=== PATIENT | female | born 1940 | race Caucasian/White ===

== ENCOUNTER 2025-06-25 20:30 | Outpatient (REF) | payer MEDICARE, OTHER, SELFPAY | END 2025-06-25 20:31 | disposition home or self-care (01) | LOC: LBN 20:30 | PROVIDERS: Visit Provider Family Medicine | DX: M70.62 Trochanteric bursitis, left hip (principal) | CPT/HCPCS: 87070; 87205 ==

== ENCOUNTER 2025-06-26 10:35 | Inpatient (IN) | payer MEDICARE, OTHER, SELFPAY ==
[2025-06-26] VITALS (90 sets, daily range): BP systolic 65–107; BP diastolic 27–56; PULSE 67–133; RESP 13–27; TEMP 36.3–37.5; O2SAT 86–97
--- NOTE | 2025-06-26 10:45 | RT.EKG_ITS ---
APPROVED REPORT Exam: Resting ECG Reason for Exam: shortness of breath Patient Location: E HR:103 bpm ECG Measurements Heart Rate 103 AXIS OK 135 P 42 QRSd 69 QRS -2 QT 328 T 20 QTc 429 Conclusion Sinus tachycardia...rate> 99 Probable left atrial enlargement...P >50mS, <-0.10mV V1 Low voltage, extremity and precordial leads...extremity<0.5mV, precordial<1.0mV Anteroseptal infarct, age indeterminate...Q >35mS, T neg, V1-V2
[2025-06-26 11:11] LABS: Abs Immature Grans 0.58 10^3/uL (0.0-0.06); HCT 29.6 % (36.0-46.0); HGB 9.9 g/dL (11.2-15.7); Immature Grans % 1.6 %; MCH 32.8 pg (27.0-33.0); MCHC 33.4 % (32.0-36.0); MCV 98 fL (80-95); MPV 10.5 fL (8.0-11.0); Platelet Count 192 10^3/uL (130-400); RBC 3.02 10^6/uL (3.93-5.22); RDW 16.9 % (11.7-14.6); RDW-SD 60.7 fL
[2025-06-26 11:13] LABS: ESR 12 mm/hr (0-30)
[2025-06-26] MEDS: Lactated Ringers 500 ML 1000 ML IV (11:20)
[2025-06-26 11:25] LABS: ALT 52 U/L (14-59); AST 52 U/L (15-37); Albumin 1.6 g/dL (3.4-5.0); Alkaline Phosphatase 292 U/L (46-116); Anion Gap 4.6 mmol/L (3-11); BUN 33 mg/dL (7-18); Bilirubin, Total 0.8 mg/dL (0.2-1.0); C-Reactive Protein 18.47 mg/dL (<or=0.5); CO2 28.4 mmol/L (21.0-32.0); Calcium 7.8 mg/dL (8.5-10.1); Chloride 101 mmol/L (98-107); Estimated GFR 88.45 (mL/min/1.73m2); Glucose 88 mg/dL (74-106); Potassium 4.7 mmol/L (3.5-5.1); Sodium 134 mmol/L (136-145); Total Protein 4.2 g/dL (6.4-8.2)
[2025-06-26 11:30] LABS: RBC Morphology Normal; WBC 36.59 10^3/uL (4.4-10.8)
--- NOTE | 2025-06-26 11:30 | DI.CT_ITS ---
Exam(s) CT CHEST PE ABD PELVIS W EXAM: CT CHEST PE ABD PELVIS W CLINICAL HISTORY: shortness of breath, tachy, hypotensive. TECHNIQUE: Imaging Protocol: Axial CT angiography was performed with multi- slice acquisition and multi-planar and/or 3D reconstructions. Computer aided detection (CAD) was utilized. CONTRAST MATERIAL: Intravenous: Omnipaque 350contrast volume:80 mL COMPARISON: No exams were available for comparison FINDINGS: CHEST: Tracheobronchial tree: Patent where visualized. No evidence of bronchiectasis. Pulmonary parenchyma: Moderate centrilobular emphysema. There is a calcified granuloma in the right upper lobe. There is scarring in the lung apices. There are moderate bilateral pleural effusions and subjacent atelectasis. Pulmonary Arteries: No evidence of filling defect to suggest pulmonary emboli. Mediastinum and Velma: No dominant adenopathy or fluid collection. The esophagus is unremarkable. There is a large hiatal hernia. Visualized thyroid gland: Unremarkable. Pleura: There is no evidence of a pneumothorax. Heart: There is cardiomegaly. Three vessel coronary artery calcification is present. No pericardial effusion. Aorta: Thoracic aorta non-dilated. No evidence of dissection. Atherosclerotic calcification is present. Bones: Within normal limits for the patient's age. Soft tissues: There is diffuse edema in the abdominal wall consistent with anasarca. ABDOMEN: Liver: Normal density. There is a tiny hypodensity in the dome of the liver which is too small for further characterization but likely early reflects a small cyst. No suspicious hepatic lesions are seen. Portal, Superior Mesenteric, and Splenic Veins: Unremarkable. Gallbladder and Biliary Tract: There are gallstones present. There is no biliary ductal dilatation. Pancreas: Normal density, no abnormal calcifications or inflammatory process. Spleen: There are several hypodensity seen in the spleen. The largest measures 3.0 cm. Adrenals: No masses seen. Kidneys: Normal size, contour and axis. No radiodense stones or obstructive uropathy. No masses seen. Abdominal Aorta: Abdominal portion non-dilated. Atherosclerotic calcification of the abdominal aorta is noted. There is tortuosity of the abdominal aorta. 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 Bowel: There is a large hiatal hernia with a significant portion of the stomach above the hemidiaphragm. There is diverticulosis of the colon without evidence of acute diverticulitis. There is thickening of the bowel involving the ascending and proximal transverse colon. There is a normal appendix present. Peritoneal Cavity: There is a large amount of abdominal and pelvic ascites. No free air. Lymph Nodes: Within normal limits. Bones: Within normal limits for the patient's age. There is a left convex thoracolumbar scoliosis. There are L3 through L5 laminectomy defects. Soft Tissues: There is edema seen in the subcutaneous tissues in the abdomen suspicious for anasarca. PELVIS: Bladder: There is a Arshad catheter in the urinary bladder. The urinary bladder is incompletely distended. There is air seen within the urinary bladder likely reflecting the recent catheterization. Reproductive Organs: There is a large area of decreased attenuation seen within the uterus centrally. This may be a markedly thickened endometrial stripe measuring up to 2.3 cm versus fluid within the endometrial canal. Lymph Nodes: Within normal limits. Bones: Within normal limits. IMPRESSION: 1. Extensive abdominal pelvic ascites and anasarca. 2. Thickening of the wall of the ascending and transverse colon. Differential considerations include infectious or inflammatory colitis, portal hypertension colopathy or neoplasm. 3. Diverticulosis seen in the distal colon without evidence of acute diverticulitis. 4. Large area of decreased attenuation seen within the uterus. This may represent a thickened endometrial stripe measuring up to 2.3 cm. Neoplasm should be considered. Fluid within the endometrial canal should also be considered. Hematometra should be considered. Gynecologic consult is recommended. 5. Hypodensity seen within the spleen. These are nonspecific. These may represent cysts, hemangiomas or metastases. 6. Cholelithiasis. There is no biliary ductal dilatation. 7. Air seen within the urinary bladder likely reflecting recent catheterization. 8. There is no evidence of a pulmonary embolism, thoracic aortic dissection or aneurysm. 9. Moderate size bilateral pleural effusions and subjacent atelectasis. 10. Moderate centrilobular emphysema. 11. Findings were discussed with Dr. Crowley at 2:23 p.m. on 06/26/2025. RADIATION DOSE DELIVERED: 631.37mGy.cm Total DLP DATA REPOSITORY: All CT scans at this facility are submitted to the National Radiology Data Registry (NRDR) Dose Index Registry (DIR) with the [employer] ([employer]). RADIATION OPTIMIZATION: All CT scans at this facility use at least one of these dose optimization techniques: automated exposure control; mA and/or kV adjustment per patient size (includes targeted exams where dose is matched to clinical indication); or iterative reconstruction.
[2025-06-26 11:31] LABS: NT-proBNP 1003 pg/mL (<300); Troponin I 8 ng/L (<or=51)
[2025-06-26 11:47] LABS: D-Dimer 1370 ng/mlFEU (<500)
--- NOTE | 2025-06-26 11:54 | W.ED.GENAD ---
Discharge Plan Disposition Patient Disposition: Home Condition: Serious Discharge Details Clinical Impression: Acute UTI, Ascites, Anasarca, Bilateral pleural effusion, Anemia, Sepsis Primary Care Provider: Maycol Liang ED Provider: Torsten Crowley Home Meds and New Rx's Prescriptions: No Action doxycycline hyclate 100 mg capsule 100 mg PO BID gabapentin 300 mg capsule 600 mg PO TID cephalexin 500 mg capsule 500 mg PO QID calcium carbonate [Calcium 500] 500 mg calcium (1,250 mg) tablet,chewable 500 mg PO BID vitamin E 268 mg (400 unit) capsule 268 mg PO DAILY prednisone 1 mg tablet,delayed release (DR/EC) 1 mg PO BID sertraline 25 mg tablet 25 mg PO DAILY omeprazole 20 mg capsule,delayed release(DR/EC) 20 mg PO DAILY atorvastatin [Lipitor] 10 mg tablet 10 mg PO DAILY losartan [Cozaar] 25 mg tablet 25 mg PO DAILY methotrexate sodium 2.5 mg tablet 18 mg PO QWEEK aspirin 81 mg tablet 81 mg PO BID cholecalciferol (vitamin D3) 25 mcg (1,000 unit) capsule 2,000 unit PO DAILY folic acid 1 mg tablet 1,000 mcg PO DAILY acetaminophen [Athenol] 325 mg tablet 650 mg PO TID PRN diphenhydramine HCl [Unisom SleepGels] 1 cap PO QHS PRN melatonin 3 mg capsule 3 mg PO HS PRN ibuprofen [Advil] 200 mg tablet 400 mg PO Q4H PRN bisacodyl [Dulcolax (bisacodyl)] 10 mg suppository 10 mg CA DAILY PRN sennosides [Linda-jessica] 8.6 mg tablet 25.8 mg PO DAILY PRN sorbitol 70 % solution 15 ml PO DAILY PRN HPI General Mode of arrival: ambulatory. Date/Time Provider Initiated Documentation: 06/26/25 10:50. Limitations to Documentation: no limitations. Information obtained by: patient. HPI Narrative: 84-year-old female with history of recent left hip ORIF at [facility] on 06/20/2025, sent from nursing rehab facility with concern for increased drainage from left hip wound this morning and elevated WBC on outpatient labs. Patient notes some shortness of breath that is new. No chest pain. Patient denies other complaints. Denies fever. Related Data Home Medications ?Medication ?Instructions ?Recorded ?Confirmed acetaminophen 325 mg tablet 650 mg PO TID PRN 06/26/25 06/26/25 (Athenol) aspirin 81 mg tablet 81 mg PO BID 06/26/25 06/26/25 atorvastatin 10 mg tablet (Lipitor) 10 mg PO DAILY 06/26/25 06/26/25 bisacodyl 10 mg rectal suppository 10 mg CA DAILY PRN 06/26/25 06/26/25 (Dulcolax (bisacodyl)) calcium carbonate (Calcium 500) 500 mg PO BID 06/26/25 06/26/25 cephalexin 500 mg capsule 500 mg PO QID 06/26/25 06/26/25 cholecalciferol (vitamin D3) 25 2,000 unit PO DAILY 06/26/25 06/26/25 mcg (1,000 unit) capsule diphenhydramine HCl 1 cap PO QHS PRN 06/26/25 06/26/25 doxycycline hyclate 100 mg capsule 100 mg PO BID 06/26/25 06/26/25 folic acid 1 mg tablet 1,000 mcg PO DAILY 06/26/25 06/26/25 gabapentin 300 mg capsule 600 mg PO TID 06/26/25 06/26/25 ibuprofen 200 mg tablet (Advil) 400 mg PO Q4H PRN 06/26/25 06/26/25 losartan 25 mg tablet (Cozaar) 25 mg PO DAILY 06/26/25 06/26/25 melatonin 3 mg capsule 3 mg PO HS PRN 06/26/25 06/26/25 methotrexate sodium 2.5 mg tablet 18 mg PO QWEEK 06/26/25 06/26/25 omeprazole 20 mg capsule,delayed 20 mg PO DAILY 06/26/25 06/26/25 release prednisone 1 mg tablet,delayed 1 mg PO BID 06/26/25 06/26/25 release sennosides 8.6 mg tablet (Linda-jessica) 25.8 mg PO DAILY PRN 06/26/25 06/26/25 sertraline 25 mg tablet 25 mg PO DAILY 06/26/25 06/26/25 sorbitol 70 % solution 15 ml PO DAILY PRN 06/26/25 06/26/25 vitamin E 268 mg (400 unit) capsule 268 mg PO DAILY 06/26/25 06/26/25 Allergies Allergy/AdvReac Type Severity Reaction Status Date / Time No Known Allergies Allergy Unverified 06/26/25 10:42 General Stated Complaint: GenMedical HUBERT: 2 Review of Systems All systems reviewed & are unremarkable except as noted in HPI and below Constitutional Constitutional: Denies fever(s) Exam Const General: cooperative and no acute distress Orientation: alert [facility] Head: atraumatic Mouth: moist mucous membranes Eyes Conjunctivae: normal conjunctivae Sclera: normal sclerae Neck Neck: trachea midline Resp Auscultation: clear to auscultation bilaterally, no rales, no rhonchi and no wheezes Cardio Rate: tachycardic Rhythm: regular rhythm GI Palpation: soft, not firm, no guarding, no masses, not rigid and nontender Skin General skin exam: no rashes or lesions noted Other: Multiple decubitus ulcers noted right elbow, right buttock skin breakdown over tailbone Surgical wound stapled, yifan intact, no purulent discharge, no swelling or erythema. Dressing saturated with serous fluid. Neuro General: patient alert, patient awake, patient oriented x3 and tone normal Extrem General: edema Psych Appearance: grossly normal Mental Status: mental status grossly normal Course Vital Signs Vital signs: Vital Signs Temperature 36.6 C 06/26/25 10:35 Pulse 112 H 06/26/25 10:35 Respiratory Rate 16 06/26/25 10:35 Blood Pressure 86/32 L 06/26/25 10:35 Pulse Oximetry 91 L 06/26/25 10:35 Temperature 36.6 C 06/26/25 10:44 Temperature Source Oral 06/26/25 10:44 Pulse 105 H 06/26/25 11:20 Pulse 105 H 06/26/25 11:20 Respiratory Rate 21 06/26/25 11:20 Blood Pressure 65/48 L 06/26/25 11:18 Blood Pressure Mean 51 06/26/25 11:18 Blood Pressure Position Sitting 06/26/25 10:44 Pulse Oximetry 93 06/26/25 11:20 Oxygen Delivery Method Room Air 06/26/25 10:44 Oxygen Flow Rate 0 06/26/25 10:44 Pain Level 0 06/26/25 10:44 Lab/Test Results Lab/Test Results: 06/26/25 11:14 Blood Blood Culture - Pending 06/26/25 10:50 Blood Blood Culture - Pending Laboratory Tests Range/Units 06/26/25 10:57 WBC (4.4-10.8) 10^3/uL 36.59 H* RBC (3.93-5.22) 10^6/uL 3.02 L Hgb (11.2-15.7) g/dL 9.9 L Hct (36.0-46.0) % 29.6 L MCV (80-95) fL 98 H MCH (27.0-33.0) pg 32.8 MCHC (32.0-36.0) % 33.4 RDW (11.7-14.6) % 16.9 H Plt Count (130-400) 10^3/uL 192 MPV (8.0-11.0) fL 10.5 Immature Gran % % 1.6 Neutrophils % % 90.0 Lymphocytes % % 3.5 Monocytes % % 4.6 Eosinophils % % 0.1 Basophils % % 0.2 Nucleated RBC % (0.0-0.3) % 0.0 Absolute Neutrophils (1.2-6.7) 10^3/uL 32.93 H Absolute Lymphocytes (1.2-3.4) 10^3/uL 1.28 Absolute Monocytes (0.1-0.8) 10^3/uL 1.68 H Absolute Eosinophils (0.0-0.7) 10^3/uL 0.04 Absolute Basophils (0.0-0.2) 10^3/uL 0.07 RBC Morphology Normal ESR (0-30) mm/hr 12 VBG Lactate (<or=2.0) mmol/L 1.4 Sodium (136-145) mmol/L 134 L Potassium (3.5-5.1) mmol/L 4.7 Chloride (98-107) mmol/L 101 Carbon Dioxide (21.0-32.0) mmol/L 28.4 Anion Gap (3-11) mmol/L 4.6 BUN (7-18) mg/dL 33 H Creatinine (0.55-1.02) mg/dL 0.6 Est GFR (CKD-EPI 2020) (mL/min/1.73m2) 88.45 Glucose (74-106) mg/dL 88 Calcium (8.5-10.1) mg/dL 7.8 L Total Bilirubin (0.2-1.0) mg/dL 0.8 AST (15-37) U/L 52 H ALT (14-59) U/L 52 Alkaline Phosphatase (46-116) U/L 292 H Troponin I (<or=51) ng/L 8 C-Reactive Protein (<or=0.5) mg/dL 18.47 H NT-Pro-B Natriuret Pep (<300) pg/mL 1003 H Total Protein (6.4-8.2) g/dL 4.2 L Albumin (3.4-5.0) g/dL 1.6 L Medical Decision Making 1210??84-year-old female with history of rheumatoid arthritis on immunosuppressive chronically presents 6 days status post ORIF left hip with concern from halfway for increased discharge from surgical wound and leukocytosis. Patient has shortness of breath, tachycardic, hypoxic and hypotensive on arrival. Abdominal exam benign. Surgical wound looks clean with serous discharge. Concern for acute life-threatening pulmonary embolism. Plan to obtain CT of the chest. Consider infectious etiology including urinary tract infection, postoperative infection, pneumonia. I will give 500mL IV fluid bolus and plan to reassess. EKG was reviewed and interpreted by me: Please see report, sinus tachycardia 103 bpm, left atrial enlargement, low voltage in precordial leads, no STEMI. -Patient reassessed after IV fluid and blood pressure improved. 1400 -- labs reviewed and significant leukocytosis noted. Lactate normal. D-dimer is elevated. BNP is elevated. Troponins negative. 1425 --urinalysis reviewed and consistent with UTI. Will initiate treatment with cefepime IV. CT of the chest abdomen pelvis was interpreted by radiology: IMPRESSION: 1. Extensive abdominal pelvic ascites and anasarca. 2. Thickening of the wall of the ascending and transverse colon. Differential considerations include infectious or inflammatory colitis, portal hypertension colopathy or neoplasm. 3. Diverticulosis seen in the distal colon without evidence of acute diverticulitis. 4. Large area of decreased attenuation seen within the uterus. This may represent a thickened endometrial stripe measuring up to 2.3 cm. Neoplasm should be considered. Fluid within the endometrial canal should also be considered. Hematometra should be considered. Gynecologic consult is recommended. 5. Hypodensity seen within the spleen. These are nonspecific. These may represent cysts, hemangiomas or metastases. 6. Cholelithiasis. There is no biliary ductal dilatation. 7. Air seen within the urinary bladder likely reflecting recent catheterization. 8. There is no evidence of a pulmonary embolism, thoracic aortic dissection or aneurysm. 9. Moderate size bilateral pleural effusions and subjacent atelectasis. 10. Moderate centrilobular emphysema. Plan for hospitalization. [id number] --I spoke with the hospitalist, Dr. Ba, discussed ED presentation course, she will admit the patient for further diagnostic workup and treatment. Patient remains tachycardic at 104bpm. BP 90/47. Lab Data Lab results reviewed: Yes I reviewed the patient's lab results. Labs: 06/26/25 12:17 Urine - Reflex from Ua Urine Culture - Pending 06/26/25 11:14 Blood Blood Culture - Pending 06/26/25 10:50 Blood Blood Culture - Pending Laboratory Tests Range/Units 06/26/25 06/26/25 06/26/25 10:57 11:14 12:02 WBC (4.4-10.8) 10^3/uL 36.59 H* RBC (3.93-5.22) 10^6/uL 3.02 L Hgb (11.2-15.7) g/dL 9.9 L Hct (36.0-46.0) % 29.6 L MCV (80-95) fL 98 H MCH (27.0-33.0) pg 32.8 MCHC (32.0-36.0) % 33.4 RDW (11.7-14.6) % 16.9 H Plt Count (130-400) 10^3/uL 192 MPV (8.0-11.0) fL 10.5 Immature Gran % % 1.6 Neutrophils % % 90.0 Lymphocytes % % 3.5 Monocytes % % 4.6 Eosinophils % % 0.1 Basophils % % 0.2 Nucleated RBC % (0.0-0.3) % 0.0 Absolute Neutrophils (1.2-6.7) 10^3/uL 32.93 H Absolute Lymphocytes (1.2-3.4) 10^3/uL 1.28 Absolute Monocytes (0.1-0.8) 10^3/uL 1.68 H Absolute Eosinophils (0.0-0.7) 10^3/uL 0.04 Absolute Basophils (0.0-0.2) 10^3/uL 0.07 RBC Morphology Normal ESR (0-30) mm/hr 12 D-Dimer (<500) ng/mlFEU 1370 H VBG Lactate (<or=2.0) mmol/L 1.4 Sodium (136-145) mmol/L 134 L Potassium (3.5-5.1) mmol/L 4.7 Chloride (98-107) mmol/L 101 Carbon Dioxide (21.0-32.0) mmol/L 28.4 Anion Gap (3-11) mmol/L 4.6 BUN (7-18) mg/dL 33 H Creatinine (0.55-1.02) mg/dL 0.6 Est GFR (CKD-EPI 2020) (mL/min/1.73m2) 88.45 Glucose (74-106) mg/dL 88 Calcium (8.5-10.1) mg/dL 7.8 L Total Bilirubin (0.2-1.0) mg/dL 0.8 AST (15-37) U/L 52 H ALT (14-59) U/L 52 Alkaline Phosphatase (46-116) U/L 292 H Troponin I (<or=51) ng/L 8 8 C-Reactive Protein (<or=0.5) mg/dL 18.47 H NT-Pro-B Natriuret Pep (<300) pg/mL 1003 H Total Protein (6.4-8.2) g/dL 4.2 L Albumin (3.4-5.0) g/dL 1.6 L Urine Color (Yellow) Urine Clarity (Clear) Urine pH (5-8) Ur Specific [facility] (1.005-1.025) Urine Protein (Neg-Trace) mg/dL Urine Ketones (Negative) mg/dL Urine Blood (Negative) Urine Nitrite (Negative) Urine Bilirubin (Negative) Urine Urobilinogen (Up to 0.2) mg/dL Ur Leukocyte Esterase (Negative) Urine RBC (0-2) HPF Urine WBC (0-5) HPF Ur Epithelial Cells (Negative) HPF Urine Crystals (Negative) HPF Urine Bacteria (Negative) HPF Urine Casts (Negative) LPF Urine Mucus (Negative) Ur Culture Indicated? Urine Glucose (Negative) mg/dL COVID-19 Source Nasopharynx SARS-CoV-2 (PCR) (Negative) Negative Influenza Type A (PCR) (Negative) Negative Influenza Type B (PCR) (Negative) Negative RSV (PCR) (Negative) Negative Range/Units 06/26/25 12:17 WBC (4.4-10.8) 10^3/uL RBC (3.93-5.22) 10^6/uL Hgb (11.2-15.7) g/dL Hct (36.0-46.0) % MCV (80-95) fL MCH (27.0-33.0) pg MCHC (32.0-36.0) % RDW (11.7-14.6) % Plt Count (130-400) 10^3/uL MPV (8.0-11.0) fL Immature Gran % % Neutrophils % % Lymphocytes % % Monocytes % % Eosinophils % % Basophils % % Nucleated RBC % (0.0-0.3) % Absolute Neutrophils (1.2-6.7) 10^3/uL Absolute Lymphocytes (1.2-3.4) 10^3/uL Absolute Monocytes (0.1-0.8) 10^3/uL Absolute Eosinophils (0.0-0.7) 10^3/uL Absolute Basophils (0.0-0.2) 10^3/uL RBC Morphology ESR (0-30) mm/hr D-Dimer (<500) ng/mlFEU VBG Lactate (<or=2.0) mmol/L Sodium (136-145) mmol/L Potassium (3.5-5.1) mmol/L Chloride (98-107) mmol/L Carbon Dioxide (21.0-32.0) mmol/L Anion Gap (3-11) mmol/L BUN (7-18) mg/dL Creatinine (0.55-1.02) mg/dL Est GFR (CKD-EPI 2020) (mL/min/1.73m2) Glucose (74-106) mg/dL Calcium (8.5-10.1) mg/dL Total Bilirubin (0.2-1.0) mg/dL AST (15-37) U/L ALT (14-59) U/L Alkaline Phosphatase (46-116) U/L Troponin I (<or=51) ng/L C-Reactive Protein (<or=0.5) mg/dL NT-Pro-B Natriuret Pep (<300) pg/mL Total Protein (6.4-8.2) g/dL Albumin (3.4-5.0) g/dL Urine Color (Yellow) Dark Yellow Urine Clarity (Clear) Cloudy Urine pH (5-8) 6.0 Ur Specific [facility] (1.005-1.025) 1.015 Urine Protein (Neg-Trace) mg/dL 100 H Urine Ketones (Negative) mg/dL Trace H Urine Blood (Negative) Large H Urine Nitrite (Negative) Negative Urine Bilirubin (Negative) Small H Urine Urobilinogen (Up to 0.2) mg/dL 1.0 H Ur Leukocyte Esterase (Negative) Moderate H Urine RBC (0-2) HPF 20-50 H Urine WBC (0-5) HPF >50 H Ur Epithelial Cells (Negative) HPF Few Urine Crystals (Negative) HPF Negative Urine Bacteria (Negative) HPF Few Urine Casts (Negative) LPF 3-5 Hyaline Urine Mucus (Negative) Negative Ur Culture Indicated? Yes Urine Glucose (Negative) mg/dL Negative COVID-19 Source SARS-CoV-2 (PCR) (Negative) Influenza Type A (PCR) (Negative) Influenza Type B (PCR) (Negative) RSV (PCR) (Negative) PFSH All Active Problems (Updated 06/26/25 @ 15:03 by Torsten Crowley MD) Sepsis (Acute) Anemia (Chronic) Bilateral pleural effusion (Acute) Anasarca (Acute) Ascites (Acute) Acute UTI (Acute) Social History Smoking/Tobacco Use Status: Former Tobacco Use Quit Date: 09/17/99 Smoking risk assessment performed?: Yes Alcohol Intake: never Drug use: Never Substance use type: does not use Do you feel safe at home: Yes
[2025-06-26 12:01] LABS: COVID-19 PCR Negative (Negative); RSV PCR Negative (Negative)
[2025-06-26 12:26] LABS: Glucose Negative (Negative)
[2025-06-26 12:33] LABS: C & S Indicated? Yes; RBC 20-50 HPF (0-2); WBC >50 HPF (0-5)
--- NOTE | 2025-06-26 12:40 | NUR.NOTE ---
Pt brought from [facility] s/p left hip repair due to fall. Pt reports she has not been eating or drinking for the past three days. Arrived extremely hypotensive, meeting sepsis criteria. Skin issues noted: 1) Pt has 2 stasis ulcers, approx 2 cm radius, on inner left malleolus. Existing dressing dated for 06/25/25. Serous drainage. Dressing replaced. 2) Pt has pressure injury (stage 2) to right shoulder, approx 2 cm X4 cm with serous drainage. Dressed and mepilex placed. 3) Right hip has stage 3 pressure injury to right hip, dressed and mepilex placed. This is approx 4 cm X 3 cm. 4) Pt has stage 1 pressure injury to coccyx, red and non-blanchable. Mepilex placed for prevention. 5) Pt has left hip incision from surgery with yifan in place, approx 13 cm, significant serosanguinous drainage. No malodor or erythema. Dressing and bandage replaced. 6) Pt was soiled and incontinent of urine. Cleaned and alfaro placed. Brief left off to allow skin to dry and to protect skin integrity. 7) Pt susceptible to pressure injury on heels, bilateral heel protector pads with sleeves placed for prophylaxis. Pt was cleaned, given new gown, and bedding was changed. Also, placed on hover mat and heels floated. Pt appears to be high risk for pressure injury/breakdown due to frailty and lack of nutritional intake. Will provide this discription in handoff to ensure close monitoring and care of wounds. Silver impregnated bandage placed on incision site and on right pressure injury. Pt has no allergy to silver. Pt does endorse she has decreased sensitivity to buttocks and groin and cannot always tell when she is wet or soiled. This further increases risk for skin breakdown. George Antonio, ADRIANN, RN Nursing Note:
[2025-06-26 12:43] LABS: Troponin I 8 ng/L (<or=51)
[2025-06-26] MEDS: Normal Saline - Diluent 50 ML VIAL IJ (13:22)
[2025-06-26] MEDS: Omnipaque 350 MG/ML 500 ML BTL-Imaging package IJ (13:23)
[2025-06-26] MEDS: CEFEPIME 2 GM in Normal Saline 100 ML IVPB (15:13)
--- NOTE | 2025-06-26 15:22 | HPE_ITS ---
Date of service: 06/26/25 Time of Service: 15:00 Assessment and Plan Assessment and plan (1) Sepsis: Status: Acute Assessment and plan: Septic on arrival Hypotension improved with fluid resuscitation ICU admission due to high risk of decompensation with fluid overload vs hypotension Note patient is immunocompromised due to chronic steroids and methotrexate for RA (2) Bacterial infection due to Bacteroides fragilis: Status: Acute Assessment and plan: [facility] [place] after patient was admitted June 25 blood culture, one out of one bottles, grew B fragilis [facility] [place] recommended IV metronidazole, which is started We have blood cultures pending Possible etiology is aspiration during intubation/extubation (3) Gram-negative bacteremia: Status: Acute Assessment and plan: B fragilis bacteremia at [facility] Repeat cultures are pending here (4) Bilateral pleural effusion: Status: Acute Assessment and plan: Moderate bilateral effusions seen on CT Fluid overload may be due to exacerbation of RA, new HF, severe sepsis Monitor oxygenation (5) Ascites: Status: Acute Assessment and plan: Seen on CT General fluid overload with hypotension Careful diuresis as BP can tolerate (6) Anasarca: Status: Acute Assessment and plan: Seen on CT General fluid overload with hypotension Careful diuresis as BP can tolerate (7) Abnormal urinalysis: Status: Acute Assessment and plan: Arshad in place since [facility] [place] Urine ouput adequate UA showing proteinuria and elevated markers for UTI, culture pending (8) Abnormal finding present on diagnostic imaging of uterus: Status: Acute Assessment and plan: Imaging concerning for thickened endometrial stripe up to 2.3 cm Concerning for malignancy, free fluid, hematometria Review with ObGyn History of Present Illness History of Present Illness Chief Complaint: elevated WBC Narrative: Lindsey Rajput is an 84 year old woman presenting June 26, sent in from rehab facility for increased drainage from hip incision site and elevated WBC. She was hospitalized at [facility] for June 20 left hip hemiarthroplasty and discharged to rehab on June 25. Patient feels very uncomfortable due to swelling in her legs and stomach, and she feels short of breath. No chest pain, no N/V/D. In the ED she was tachycardic 112 and hypotensive 86/32. SpO2 91%. Afebrile. EKG showed sinus tachycardia. CT chest/abdomen/pelvis showed extensive abdomino-pelvic ascites and anasarca, colon wall thickening, distal diverticulosis without diverticulitis, possible thickened endometrial stripe, moderate centrilobular emphysema. DDimer was elevated but no PE was seen on CTA. CBC showed neutrophilic leukocytosis 36.59. No lactic acidosis. CRP elevated 18.47, BNP elevated 1003. UA with proteinuria, suggestive of UTI; culture was sent. Hip incision fluid and blood were sent for culture. Per discussion with [facility], June 25 blood cultures were positive for B. fragilis ; only one blood culture bottle was done. PMH includes rheumatoid arthritis on immunosuppressive therapy, HTN, depression PFSH All Active Problems (Updated 06/26/25 @ 19:19 by Ludwin Ba MD) Abnormal finding present on diagnostic imaging of uterus (Acute) Abnormal urinalysis (Acute) Gram-negative bacteremia (Acute) Bacterial infection due to Bacteroides fragilis (Acute) Sepsis (Acute) Anemia (Chronic) Bilateral pleural effusion (Acute) Anasarca (Acute) Ascites (Acute) Acute UTI (Acute) Social History Smoking/Tobacco Use Status: Former Tobacco Use Quit Date: 09/17/99 Smoking risk assessment performed?: Yes Alcohol Intake: never Drug use: Never Substance use type: does not use Housing: house Do you feel safe at home: Yes Meds Allergies and Home Medications Allergies Allergy/AdvReac Type Severity Reaction Status Date / Time No Known Allergies Allergy Unverified 06/26/25 10:42 Home Medications ?Medication ?Instructions ?Recorded ?Confirmed ?Type acetaminophen 325 mg tablet 650 mg PO TID PRN 06/26/25 06/26/25 History (Athenol) aspirin 81 mg tablet 81 mg PO BID 06/26/25 History atorvastatin 10 mg tablet (Lipitor) 10 mg PO DAILY 07/1106/26/25 History bisacodyl 10 mg rectal suppository 10 mg ID DAILY PRN 06/26/25 06/26/25 History (Dulcolax (bisacodyl)) calcium carbonate (Calcium 500) 500 mg PO BID 06/26/25 06/26/25 History cephalexin 500 mg capsule 500 mg PO QID 06/26/2506/26 History cholecalciferol (vitamin D3) 25 2,000 unit PO DAILY 06/26/25 History mcg (1,000 unit) capsule diphenhydramine HCl 1 cap PO QHS PRN 06/26/25 History doxycycline hyclate 100 mg capsule 100 mg PO BID 06/2606/26/25 History folic acid 1 mg tablet 1,000 mcg PO DAILY 06/26/25 06/26/25 History gabapentin 300 mg capsule 600 mg PO TID 06/26/2506/26 History ibuprofen 200 mg tablet (Advil) 400 mg PO Q4H PRN 06/1706/26/25 History losartan 25 mg tablet (Cozaar) 25 mg PO DAILY 06/26/25 06/26/25 History melatonin 3 mg capsule 3 mg PO HS PRN 06/26/2506/17 History methotrexate sodium 2.5 mg tablet 18 mg PO QWEEK 06/2606/26/25 History omeprazole 20 mg capsule,delayed 20 mg PO DAILY 06/26/25 History release prednisone 1 mg tablet,delayed 1 mg PO BID 06/26/25 History release sennosides 8.6 mg tablet (Linda-jessica) 25.8 mg PO DAILY P RN 06/26/25 06/26/25 History sertraline 25 mg tablet 25 mg PO DAILY 06/26/2506/17 History sorbitol 70 % solution 15 ml PO DAILY PRN 06/26/25 06/26/25 History vitamin E 268 mg (400 unit) capsule 268 mg PO DAILY 06/26/25 History Exam Narrative Exam Narrative: General: This is an ill-appearing woman, somnolent but rousable, uncomfortable in bed HEENT: Normocephalic, atraumatic CV: RRR. BLE edema/anasarca Resp: CTAB Abd: NTND, anasarca to below navel Skin: multiple skin ulcers on dependent surfaces, right elbow, right buttock. Tailbone macerated. Left hip surgical incision sites intact with serous drainage. MSK: voluntary motion x4 Neuro: awake, alert, no focal deficits Results Labs 06/26/25 10:57 06/26/25 10:57 Labs: Laboratory Results - last 24 hr 06/26/25 06/26/25 06/26/25 10:57 11:14 12:02 WBC 36.59 H* RBC 3.02 L Hgb 9.9 L Hct 29.6 L MCV 98 H MCH 32.8 MCHC 33.4 RDW 16.9 H Plt Count 192 MPV 10.5 Immature Gran % 1.6 Neutrophils % 90.0 Lymphocytes % 3.5 Monocytes % 4.6 Eosinophils % 0.1 Basophils % 0.2 Nucleated RBC % 0.0 Absolute Neutrophils 32.93 H Absolute Lymphocytes 1.28 Absolute Monocytes 1.68 H Absolute Eosinophils 0.04 Absolute Basophils 0.07 RBC Morphology Normal ESR 12 D-Dimer 1370 H VBG Lactate 1.4 Sodium 134 L Potassium 4.7 Chloride 101 Carbon Dioxide 28.4 Anion Gap 4.6 BUN 33 H Creatinine 0.6 Est GFR (CKD-EPI 2020) 88.45 Glucose 88 Calcium 7.8 L Total Bilirubin 0.8 AST 52 H ALT 52 Alkaline Phosphatase 292 H Troponin I 8 8 C-Reactive Protein 18.47 H NT-Pro-B Natriuret Pep 1003 H Total Protein 4.2 L Albumin 1.6 L Urine Color Urine Clarity Urine pH Ur Specific Amma Urine Protein Urine Ketones Urine Blood Urine Nitrite Urine Bilirubin Urine Urobilinogen Ur Leukocyte Esterase Urine RBC Urine WBC Ur Epithelial Cells Urine Crystals Urine Bacteria Urine Casts Urine Mucus Ur Culture Indicated? Urine Glucose COVID-19 Source Nasopharynx SARS-CoV-2 (PCR) Negative Influenza Type A (PCR) Negative Influenza Type B (PCR) Negative RSV (PCR) Negative 06/26/25 12:17 WBC RBC Hgb Hct MCV MCH MCHC RDW Plt Count MPV Immature Gran % Neutrophils % Lymphocytes % Monocytes % Eosinophils % Basophils % Nucleated RBC % Absolute Neutrophils Absolute Lymphocytes Absolute Monocytes Absolute Eosinophils Absolute Basophils RBC Morphology ESR D-Dimer VBG Lactate Sodium Potassium Chloride Carbon Dioxide Anion Gap BUN Creatinine Est GFR (CKD-EPI 2020) Glucose Calcium Total Bilirubin AST ALT Alkaline Phosphatase Troponin I C-Reactive Protein NT-Pro-B Natriuret Pep Total Protein Albumin Urine Color Dark Yellow Urine Clarity Cloudy Urine pH 6.0 Ur Specific Amma 1.015 Urine Protein 100 H Urine Ketones Trace H Urine Blood Large H Urine Nitrite Negative Urine Bilirubin Small H Urine Urobilinogen 1.0 H Ur Leukocyte Esterase Moderate H Urine RBC 20-50 H Urine WBC >50 H Ur Epithelial Cells Few Urine Crystals Negative Urine Bacteria Few Urine Casts 3-5 Hyaline Urine Mucus Negative Ur Culture Indicated? Yes Urine Glucose Negative COVID-19 Source SARS-CoV-2 (PCR) Influenza Type A (PCR) Influenza Type B (PCR) RSV (PCR) Last Vital Signs Temp 36.6 C 06/26/25 10:44 Pulse 99 H 06/26/25 15:01 Resp 17 06/26/25 15:01 BP 77/43 L 06/26/25 15:01 Pulse Ox 91 L 06/26/25 15:01 Time Spent Time spent with Patient: 55-74 minutes Time was spent: preparing to see the patient(eg.review tests), obtaining and/or reviewing separately otained hiistory, ordering medications,tests, procedures, referring, communicating with other health health care administrator, indepentently interpreting results, counseling the patient and care coordination
[2025-06-26 17:32] LABS: Troponin I 9 ng/L (<or=51)
[2025-06-26] MEDS: Enoxaparin 40 MG/0.4 ML SYR SC (18:19)
[2025-06-26] MEDS: metroNIDAZOLE 500 MG/100 ML BAG 100 MG IVPB ×2 (18:19→22:26)
[2025-06-26] MEDS: Normal Saline Flush 10 ML SYR (18:30)
[2025-06-26] MEDS: Acetaminophen 325 MG TAB 650 MG PO (19:53)
[2025-06-26] MEDS: methylPREDNISolone SUCC 40 MG VIAL IVP (19:53)
[2025-06-26] MEDS: Gabapentin 300 MG CAP 600 MG PO (19:54)
[2025-06-26] MEDS: Normal Saline 500 ML IV (20:29)
[2025-06-26] MEDS: Melatonin 3 MG TAB PO (22:27)
[2025-06-26] MEDS: diphenhydrAMINE 25 MG CAP 50 MG PO (22:27)
[2025-06-27] VITALS (70 sets, daily range): BP systolic 62–127; BP diastolic 40–90; PULSE 57–192; RESP 8–41; TEMP 36.4–36.9; O2SAT 87–97
[2025-06-27] MEDS: Norepinephrine in D5W 8 MG/250 ML BAG 9.375 MG IV (00:13)
[2025-06-27] MEDS: Metoprolol 5 MG/5 ML VIAL 2.5 MG IVP ×5 (02:51→11:19)
[2025-06-27] MEDS: Normal Saline Flush 10 ML SYR IVP ×3 (02:52→17:59)
--- NOTE | 2025-06-27 03:00 | RT.EKG_ITS ---
APPROVED REPORT Exam: Resting ECG Reason for Exam: rhythm change Patient Location: I HR:157 bpm ECG Measurements Heart Rate 157 AXIS HI [id number] P [id number] QRSd 68 QRS 1 QT 267 T 39 QTc 432 Conclusion Atrial fibrillation with rapid V-rate...A-rate 306 Low voltage, extremity leads...all extremity leads <0.5mV Anteroseptal infarct, old...Q >40mS, V1-V2
[2025-06-27] MEDS: metroNIDAZOLE 500 MG/100 ML BAG 100 MG IVPB ×4 (04:01→23:48)
[2025-06-27] MEDS: methylPREDNISolone SUCC 40 MG VIAL IVP ×3 (04:01→20:14)
[2025-06-27] MEDS: Acetaminophen 325 MG TAB 650 MG PO (04:17)
[2025-06-27 06:09] LABS: Abs Immature Grans 1.28 10^3/uL (0.0-0.06); HCT 35.0 % (36.0-46.0); HGB 11.9 g/dL (11.2-15.7); Immature Grans % 2.0 %; MCH 33.1 pg (27.0-33.0); MCHC 34.0 % (32.0-36.0); MCV 97 fL (80-95); MPV 10.6 fL (8.0-11.0); Platelet Count 406 10^3/uL (130-400); RBC 3.60 10^6/uL (3.93-5.22); RDW 16.8 % (11.7-14.6); RDW-SD 60.2 fL
[2025-06-27 06:21] LABS: RBC Morphology Normal
[2025-06-27 06:24] LABS: WBC 64.58 10^3/uL (4.4-10.8)
[2025-06-27 06:28] LABS: ALT 39 U/L (14-59); AST 41 U/L (15-37); Albumin 1.4 g/dL (3.4-5.0); Alkaline Phosphatase 270 U/L (46-116); Anion Gap 9.1 mmol/L (3-11); BUN 37 mg/dL (7-18); Bilirubin, Total 0.8 mg/dL (0.2-1.0); CO2 21.9 mmol/L (21.0-32.0); Calcium 7.6 mg/dL (8.5-10.1); Chloride 101 mmol/L (98-107); Estimated GFR 88.45 (mL/min/1.73m2); Glucose 108 mg/dL (74-106); Magnesium 1.7 mg/dL (1.8-2.4); Potassium 5.6 mmol/L (3.5-5.1); Sodium 132 mmol/L (136-145); Total Protein 4.1 g/dL (6.4-8.2)
[2025-06-27] MEDS: Gabapentin 300 MG CAP 600 MG PO ×3 (08:04→20:13)
[2025-06-27] MEDS: Atorvastatin 10 MG TAB PO (08:04)
[2025-06-27] MEDS: Calcium Carbonate *TUMS* 500 MG CHEW CH ×2 (08:05→20:13)
[2025-06-27] MEDS: Sertraline 25 MG TAB PO (08:05)
[2025-06-27] MEDS: Omeprazole 20 MG CAPCR PO (08:05)
[2025-06-27] MEDS: Folic Acid 1 MG TAB PO (08:05)
[2025-06-27] MEDS: Cholecalciferol (Vitamin D3) 1,000 UNIT TAB 2000 UNITS PO (08:05)
--- NOTE | 2025-06-27 08:21 | W.EVENT ---
Date of service: 06/26/25 Time of Service: 23:30 Event Note: This is an 84-year-old female patient who was admitted hours ago who is septic with positive blood cultures for Bacteroides fragilis on Flagyl IV. She is having problems with blood pressure control but also is having problems with fluid overload. She has anasarca with recent hip surgery wound draining clear serous fluid. She has intermittent episodes of tachycardia with monitor showing possible PSVT. Patient is on Lovenox prophylaxis. She is having problems maintaining her blood pressure and fluid boluses have been given but cautiously. I was called by the nurse to review her treatment plan for low blood pressure and poor urinary output. Her maps were below 65 and urine output was down. Labs did reveal markedly elevated WBC about 30,000 with mild hyponatremia and elevated liver function test with low protein status which may have been contributing to her anasarca. She was not febrile. She was not having respiratory problems and was not hypoxic. Patient was nontachypneic but the intermittent tachycardia appeared to be causing worsening poor perfusion with a poor appetite. Intravascular she may have been also compromised though as stated fluids with boluses of 500 cc on my shift and then 250 cc had to be augmented with no epinephrine infusion to maintain MAP and output. Her tachycardia became more problematic with norepinephrine infusion though she did improve urine output. Metoprolol IV was given at 2.5 mg to help somewhat lower her tachycardia and during the senior rd engineer hours after I initially started treating the patient. She has a DNR/DNI and it appears she is not responding to therapy with her bacteremia and sepsis is not responding to supportive care. Family members have not been returning calls but the patient did state to the nurse that she was going to give us a day indicating that she thought that she may be dying. She was clear mind when speaking with the nurse about this process. Assessment/plan: Sepsis with bacteremia growing Bacteroides fragilis not responding to antibiotic therapy and supportive care. Anasarca with right-sided heart failure and poor protein status indicates patient's multisystem compromise in this process. She is a DNR/DNI and has expressed wishes to be kept comfortable rather than to correct her situation and this needs to be further investigated with the patient and possibly with family. Continue supportive care though tachycardia may be compensatory for her intravascular status and sepsis and treating numbers may not be appropriate. This will be discussed further with family and patient with the day hospitalist. It would be appropriate to have her on comfort measures only and allow it to progress with her disease as she is doing despite treatment. Time Spent with Patient Time spent in critical care(minutes): 40 Time Spent Included: Coordination of care, Chart review, Documenting critically ill care and Time at immediate bedside
--- NOTE | 2025-06-27 09:16 | INITIAL_ITS ---
Date of service: 06/27/25 Time of Service: 09:16 Care Management Initial Assmt Initial Assessment Reason for Hospitalization: Sepsis Functional Status/Living Situation Patient Presentation: Lindsey was lying in bed when CM met with her. She stated that she is feeling better today than when she arrived. Per RN, she is more alert now then earlier today, when her HR was very high. Lindsey stated that she lives in [place] with her daughter, who helps to care for her. She stated that she is currently receiving short term rehab at [facility], but that her plan is to return home once she is more independent. She stated that she hasn't spoken to her daughter today, but she believes that she knows that she is here. CM attempted to call Carey, but there was no answer. CM will continue to follow. Town of Residence: [place] Resides with: Other (Currently at [facility] for short term rehab) Significant Other/Family: Local Natural Supports: daughter, Jacquie, lives with her and cares for her at baseline Employment Status: Retired Instrumental Activities of Daily Living (ADLs): Requires support Medications Medication Management: No Issues/Barriers identified Advance Directives Advance Directives: Do you have an Advance Directive: Y , 11:33 AD On File at [facility]: N 06/26/25, 11:33 Date Asked 06/26/25 06/26/25, 11:33 AD Date Reviewed COLST On File at [facility] COLST Date Scanned Code Status Resuscitation Status DNR/DNI Insurance Coverage/Financial Issues Insurance: [facility] Care Team Visit Care Team Role Provider Type Maycol Liang Primary Care Provider NON-[facility] STAFF PHYSICIAN InPatient Gopi Tate Other Providers OTHER Torsten Crowley MD Emergency Provider [facility] STAFF PHYSICIAN Ludwin Ba MD Admit Provider [facility] STAFF PHYSICIAN Attending Provider Discharge Potential Discharge Needs: PCP F/U Appt Anticipated Barriers to Discharge: Medical Status Patient/Family Education Needs: Review discharge instructions, discuss Ask Me Three Transportation: EMS Plan: Lindsey is currently being treated at ICU level of care. Once she is medically cleared, she will return to [facility] to continue her rehab. She will likely transport via w/c van, coordinated by CM. She will follow up with her PCP and discharge plan of care. CM will continue to follow. Social Determinants of Health Screening Social Determinants of health last assessed in clinic: 06/27/25 Will the Patient Participate in the Screening?: Yes Do you worry about having a steady place to live?: no Problems where you live: no known problems In the past 12 months, have you had to go without electric, gas, oil or water in your home?: no 1. Within the past 12 months, we worried whether our food would run out before we got money to buy more.: Don't know/refused 2. Within the past 12 months, the food we bought just didn't last and we didn't have money to get more.: Don't know/refused Has lack of transportation kept you from medical appointments or from doing things needed for daily living?: no Has anyone in your life made you feel unsafe or unsupported?: no How hard is it for you to pay for the very basics like food, housing, medical care, and heating? Would you say it is:: Not hard at all Do you want help finding or keeping work or a job?: I do not need or want help If for any reason you need help with day-to-day activities such as bathing, preparing meals, shopping, managing finances, etc., do you get the help you need?: I get all the help I need How often do you feel lonely or isolated from those around you?: Rarely Do you speak a language other than Arabic at home?: No Comments: her daughter Carey Ashraf [phone] home phone lives with her at her house, which is paid for, and assists her with any and all needs Health Related Social Needs Health related social needs: feeling lonely/isolated (Z60.8) Health related social needs details: states that her daughter provides anything she needs and is supportive. She lives with Lindsey rent free. PFSH All Active Problems Abnormal finding present on diagnostic imaging of uterus (Acute) Abnormal urinalysis (Acute) Gram-negative bacteremia (Acute) Bacterial infection due to Bacteroides fragilis (Acute) Sepsis (Acute) Anemia (Chronic) Bilateral pleural effusion (Acute) Anasarca (Acute) Ascites (Acute) Acute UTI (Acute) Social History Smoking/Tobacco Use Status: Former Tobacco Use Quit Date: 09/17/99 Smoking risk assessment performed?: Yes Alcohol Intake: never Drug use: Never Substance use type: does not use Housing: house Do you feel safe at home: Yes
[2025-06-27] MEDS: MAGNESIUM SULFATE 2 GM/50 ML BAG IV_INF (10:04)
[2025-06-27] MEDS: Insulin REGULAR-Human 100 UNITS/ML UNIT SC (10:10)
[2025-06-27] MEDS: Dextrose 50%-Water 25 GM/50 ML SYR IVP (10:11)
--- NOTE | 2025-06-27 10:15 | DI.RAD_ITS ---
Exam(s) XR PORTABLE CHEST AP POST LINE EXAM: XR PORTABLE CHEST AP POST LINE CLINICAL HISTORY: Central line placement TECHNIQUE: 2D digital imaging was performed of the chest. One image was obtained. An AP view was obtained. COMPARISON: CT CT CHEST PE ABD PELVIS W from 06/26/2025 FINDINGS: There has been interval placement of a right internal jugular central venous catheter. The catheter may be retract 2 cm. MEDIASTINUM: Normal. HEART: Normal. PULMONARY VASCULATURE: Normal. LUNGS: There are low lung volumes. There is a consolidation seen in the left lung base medially. PLEURAL SPACE: There are bilateral pleural effusions present. There is no pneumothorax. BONE:Within normal limits for the patient's age. OTHER FINDINGS:Normal. IMPRESSION: 1. The tip of the catheter appears to lie in the right atrium. Catheter may be pulled back 2 cm. 2. Small bilateral pleural effusions. 3. Left basilar infiltrate. DATA REPOSITORY: RADIATION DOSE DELIVERED:
--- NOTE | 2025-06-27 10:22 | W.SURGCON ---
Date of service: 06/27/25 Time of Service: 11:59 Assessment and Plan Assessment and plan (1) Sepsis: Status: Acute Assessment and plan: sepsis with shock requiring pressor support. Central line and arterial line indicated. Successful placement of central line at bedside. I was not successful in arterial line placement. Central line is okay to use and pressors initiated through the line. (2) Bacterial infection due to Bacteroides fragilis: Status: Acute (3) Gram-negative bacteremia: Status: Acute (4) Anasarca: Status: Acute History of Present Illness History of Present Illness Chief Complaint: septic patient on vasopressors needing central line and arterial line Narrative: 84yo F who is 7 days s/p L hip arthroplasty who is positive for B fragilis in blood cultures. She is on pressor support and needs central venous access for that. Pt is awake but visibly tired and unwell. She says she feels nauseated. No previous central access though she has had a midline before. She is not on blood thinners. She notes nausea that is moderate and abdominal pain that is mild. PFSH All Active Problems Abnormal finding present on diagnostic imaging of uterus (Acute) Abnormal urinalysis (Acute) Gram-negative bacteremia (Acute) Bacterial infection due to Bacteroides fragilis (Acute) Sepsis (Acute) Anemia (Chronic) Bilateral pleural effusion (Acute) Anasarca (Acute) Ascites (Acute) Acute UTI (Acute) Social History Smoking/Tobacco Use Status: Former Tobacco Use Quit Date: 09/17/99 Smoking risk assessment performed?: Yes Alcohol Intake: never Drug use: Never Substance use type: does not use Housing: house Do you feel safe at home: Yes Exam Narrative Exam Narrative: awake, somnolent, NAD eomi, MMM midline trachea, neck is symmetric PULM: normal resp effort, equal chest rise with respiration, no wheezing audible CARDIAC: tachycardic, body is warm and perfused abdomen is obese extremities are without deformity, L hip incision w yifan intact, no erythema. Large amount of serous/edema fluid weeping from incision. No purulence, no odor. No tenderness. Pt denies pain. speech is clear and coherent mood and affect are congruent, no focal neurological deficits skin without rash Results Last Vital Signs Temp 98.4 F 06/27/25 00:32 Pulse 192 H 06/27/25 08:52 Resp 15 06/27/25 04:45 BP 100/64 06/27/25 08:52 Pulse Ox 94 06/27/25 04:45 Labs 06/27/25 05:47 06/27/25 05:47 Labs: Laboratory Results - last 24 hr 06/26/25 06/26/25 06/26/25 10:57 11:14 12:02 WBC 36.59 H* RBC 3.02 L Hgb 9.9 L Hct 29.6 L MCV 98 H MCH 32.8 MCHC 33.4 RDW 16.9 H Plt Count 192 MPV 10.5 Immature Gran % 1.6 Neutrophils % 90.0 Lymphocytes % 3.5 Monocytes % 4.6 Eosinophils % 0.1 Basophils % 0.2 Nucleated RBC % 0.0 Absolute Neutrophils 32.93 H Absolute Lymphocytes 1.28 Absolute Monocytes 1.68 H Absolute Eosinophils 0.04 Absolute Basophils 0.07 RBC Morphology Normal ESR 12 D-Dimer 1370 H VBG Lactate 1.4 Sodium 134 L Potassium 4.7 Chloride 101 Carbon Dioxide 28.4 Anion Gap 4.6 BUN 33 H Creatinine 0.6 Est GFR (CKD-EPI 2020) 88.45 Glucose 88 Calcium 7.8 L Magnesium Total Bilirubin 0.8 AST 52 H ALT 52 Alkaline Phosphatase 292 H Troponin I 8 8 C-Reactive Protein 18.47 H NT-Pro-B Natriuret Pep 1003 H Total Protein 4.2 L Albumin 1.6 L Urine Color Urine Clarity Urine pH Ur Specific [place] Urine Protein Urine Ketones Urine Blood Urine Nitrite Urine Bilirubin Urine Urobilinogen Ur Leukocyte Esterase Urine RBC Urine WBC Ur Epithelial Cells Urine Crystals Urine Bacteria Urine Casts Urine Mucus Ur Culture Indicated? Urine Glucose COVID-19 Source Nasopharynx SARS-CoV-2 (PCR) Negative Influenza Type A (PCR) Negative Influenza Type B (PCR) Negative RSV (PCR) Negative 06/26/25 06/26/25 06/27/25 12:17 17:06 05:47 WBC 64.58 H* RBC 3.60 L Hgb 11.9 D Hct 35.0 L MCV 97 H MCH 33.1 H MCHC 34.0 RDW 16.8 H Plt Count 406 H D MPV 10.6 Immature Gran % 2.0 Neutrophils % 95.2 Lymphocytes % 1.8 Monocytes % 1.0 Eosinophils % 0.0 Basophils % 0.0 Nucleated RBC % 0.0 Absolute Neutrophils 61.48 H Absolute Lymphocytes 1.16 L Absolute Monocytes 0.65 Absolute Eosinophils 0.00 Absolute Basophils 0.00 RBC Morphology Normal ESR D-Dimer VBG Lactate Sodium 132 L Potassium 5.6 H Chloride 101 Carbon Dioxide 21.9 Anion Gap 9.1 BUN 37 H Creatinine 0.6 Est GFR (CKD-EPI 2020) 88.45 Glucose 108 H Calcium 7.6 L Magnesium 1.7 L Total Bilirubin 0.8 AST 41 H ALT 39 Alkaline Phosphatase 270 H Troponin I 9 C-Reactive Protein NT-Pro-B Natriuret Pep Total Protein 4.1 L Albumin 1.4 L Urine Color Dark Yellow Urine Clarity Cloudy Urine pH 6.0 Ur Specific [place] 1.015 Urine Protein 100 H Urine Ketones Trace H Urine Blood Large H Urine Nitrite Negative Urine Bilirubin Small H Urine Urobilinogen 1.0 H Ur Leukocyte Esterase Moderate H Urine RBC 20-50 H Urine WBC >50 H Ur Epithelial Cells Few Urine Crystals Negative Urine Bacteria Few Urine Casts 3-5 Hyaline Urine Mucus Negative Ur Culture Indicated? Yes Urine Glucose Negative COVID-19 Source SARS-CoV-2 (PCR) Influenza Type A (PCR) Influenza Type B (PCR) RSV (PCR) Procedures Arterial Line Additional comments: Attempt at left radial art line was unsuccessful. Central Line Placement Right IJ: Time out performed: Yes Patient placed on monitor/pulse ox: Yes MD prep: mask, gown and gloves Central line prep: Chlorhexidine scrub and sterile drapes applied Local anesthesia used: lidocaine 1% Amount of anesthesia used (ml): 5 Ultrasound used for placement: Yes Central line lumen inserted: triple Post procedure: sutured in place, good blood return, all ports aspirated, flushed, capped and sterile dressing applied Post procedure x-ray: tip of catheter in good position and no pneumothorax seen Patient tolerated procedure: well and no complications Additional comments: Right IJ central line placement under ultrasound guidance. Initially guidewire would catch about 15cm in. Jugular vein stuck again and wire advancement successful after twirling the wire within the needle and advancing. US confirmed venous position of wire within the jugular vein, descending to the chest. Tract dilated. Catheter advanced. all ports flush and aspirate. Catheter placed to 18cm. Secured at two points with silk suture. Biopatch and tegaderm placed. CXR showed catheter in the atrium so it was pulled back 2cm using sterile technique. Pt tolerated procedure well.
--- NOTE | 2025-06-27 10:26 | NUR.NOTE ---
Nursing Note: Dr. Albrecht and Dr. Ba in unit, pt is tachy in the 170s-200s. Central line and arterial line placement pending.
[2025-06-27] MEDS: Ondansetron 4 MG/2 ML VIAL IVP (10:46)
[2025-06-27] MEDS: Normal Saline-STERILE FIELD 0.9% 10 ML SYR (10:47)
[2025-06-27] MEDS: VASOPRESSIN 50 UNITS in Normal Saline 497.5 ML 6 UNITS IV (11:51)
[2025-06-27] MEDS: cefTRIAXone 2 GM/50 ML BAG IVPB (12:03)
[2025-06-27] MEDS: ALBUMIN HUMAN 25 GM/100 ML BTL IVPB (12:23)
--- NOTE | 2025-06-27 12:41 | PGE_ITS ---
Date of Service Date of service: 06/27/25 Time of Service: 08:00 Assessment and Plan Assessment and plan (1) Septic shock with acute organ dysfunction due to anaerobic bacteria: Status: Acute Assessment and plan: Lindsey Rajput is an 84 year old woman presenting June 26, sent in from rehab facility for increased drainage from hip incision site and elevated WBC. [place] [facility] [place] hemi[place]ro[place] and discharged to rehab on June 25. Blood culture Jun 25 positive for B fragilis, one of one bottles. In the [facility] she was found to be tachycardic 112 and hypotensive 86/32 with neutrophilic leukocytosis 36.59. No lactic acidosis. CRP elevated 18.47, BNP elevated 1003. UA with proteinuria, suggestive of UTI; culture was sent. Hip incision fluid and blood were sent for culture. Reasonable concern for PE with elevated ddimer; CTA negative for thrombus. CT showed extensive abdomino-pelvic ascites and anasarca, colon wall thickening, distal diverticulosis without diverticulitis, possible thickened endometrial stripe, moderate centrilobular emphysema. Patient is immunocompromised due to chronic steroids and methotrexate for RA PMH includes rheumatoid arthritis on immunosuppressive therapy, HTN, depression Patient was admitted to the ICU, with some improvement in BP after light IV fluids. She was started on norephinephrine overnight, with good response in pressure. Tachycardia persisted and worsened. Very poor urine output, 75 ml overnight. Leukocytosis increased to 64.58. Hyperkalemia 5.6 and hypomagnesemia 1.7 corrected. Steroids started. Central line and arterial line were placed and vasopressin was added to norepinephrine. Tachycardia resolved and she produced about 20 ml of urine. As of 1699 on June 27 she is hemodynamically stable on 2 pressors, somnolent but rousable and cognitively intact, with oliguria, severe lower body edema, and anasarca to the umbilicus. [facility] has been engaged for critical care consultation. At this time the left hip hemiarthroplasty appears to be unaffected; however the risk to the joint with B fragilis bacteremia is a concern. Her edema and anasarca require diuresis which is not compatible with her hypotension. (2) Bacterial infection due to Bacteroides fragilis: Status: Acute Assessment and plan: [facility] [place] [facility] after patient was admitted October 9 blood culture, one out of one bottles, grew B fragilis [facility] [place] recommended IV metronidazole, which is started [facility] Jun 26 blood and wound cultures pending Ceftriaxone added Jun 27 to cover possible UTI Possible etiology is aspiration during intubation/extubation, proximity of groin to surgical site (3) Gram-negative bacteremia: Status: Acute Assessment and plan: As above (4) Bilateral pleural effusion: Status: Acute Assessment and plan: Moderate bilateral effusions seen on CT Fluid overload may be due to exacerbation of RA, new HF, severe sepsis She is comfortable on room air Echocardiogram not available on the weekend at this facility (5) Ascites: Status: Acute Assessment and plan: Seen on CT General fluid overload with hypotension Careful diuresis if BP can tolerate (6) Anasarca: Status: Acute Assessment and plan: Seen on CT General fluid overload with hypotension Careful diuresis if BP can tolerate (7) Abnormal urinalysis: Status: Acute Assessment and plan: Arshad in place since [facility] [place] Urine ouput adequate UA showing proteinuria and elevated markers for UTI, culture pending No MARCUS at this time (8) Abnormal finding present on diagnostic imaging of uterus: Status: Acute Assessment and plan: Imaging concerning for thickened endometrial stripe up to 2.3 cm Concerning for malignancy, free fluid, hematometria Gynecology service not available at this facility Subjective Subjective Interval history since last seen: Mrs. Rajput is somnolent but rousable. She is able to answer questions appropriately and participate in conversation. She has confirmed her code status, that she would not want to be intubated, but she would want CPR to be attempted for a couple of rounds if her heart stopped. She tolerated central and arterial line placement very well. She denies pain, SOB, N/V. Exam Narrative Exam Narrative: General: This is an ill-appearing woman, somnolent but rousable, comfortable in bed HEENT: Normocephalic. RIJ in place, c/d/i CV: RRR. BLE edema/anasarca Resp: CTAB Abd: NTND, anasarca to below navel Skin: multiple skin ulcers on dependent surfaces, right elbow, right buttock. Tailbone macerated. Left hip surgical incision sites intact with serous drainage. MSK: voluntary motion x4 Neuro: awake, alert, no focal deficits Objective Last Vital Signs Temp 36.9 C 06/27/25 00:32 Pulse 170 H 06/27/25 11:19 Resp 27 H 06/27/25 10:12 BP 88/58 L 06/27/25 10:12 Pulse Ox 94 06/27/25 10:12 Laboratory Results - last 24 hr 06/26/25 06/26/25 06/27/25 12:02 17:06 05:47 WBC 64.58 H* RBC 3.60 L Hgb 11.9 D Hct 35.0 L MCV 97 H MCH 33.1 H MCHC 34.0 RDW 16.8 H Plt Count 406 H D MPV 10.6 Immature Gran % 2.0 Neutrophils % 95.2 Lymphocytes % 1.8 Monocytes % 1.0 Eosinophils % 0.0 Basophils % 0.0 Nucleated RBC % 0.0 Absolute Neutrophils 61.48 H Absolute Lymphocytes 1.16 L Absolute Monocytes 0.65 Absolute Eosinophils 0.00 Absolute Basophils 0.00 RBC Morphology Normal Sodium 132 L Potassium 5.6 H Chloride 101 Carbon Dioxide 21.9 Anion Gap 9.1 BUN 37 H Creatinine 0.6 Est GFR (CKD-EPI 2020) 88.45 Glucose 108 H Calcium 7.6 L Magnesium 1.7 L Total Bilirubin 0.8 AST 41 H ALT 39 Alkaline Phosphatase 270 H Troponin I 8 9 Total Protein 4.1 L Albumin 1.4 L Time Spent with Patient Time Spent with Patient: >50 minutes Time was spent: preparing to see the patient(eg.review tests), obtaining and/or reviewing separately otained hiistory, ordering medications,tests, procedures, referring, communicating with other health caretaker, indepentently interpreting results, counseling the patient and care coordination
--- NOTE | 2025-06-27 13:20 | ANES.VASC_ITS ---
Arterial Line Placement Date Performed: 06/27/25 Procedure Time: 13:05 Procedure Location: Intensive Care Unit Requesting Provider: Moni Orozco Timeout Performed: Yes Sedation Given (Indicate Dose Given): No Sedation given Patient Mental Status: Awake Sterility: Hand Hygiene, Surgical Cap, Surgical Mask, Sterile Gloves, Sterile Drape/Sheet and Chlorhexidine Laterality: Right Insertion Site: Radial Arterial Line Catheter: 20G Arrow Arterial Line Procedure: Vessel accessed with catheter over needle, Guidewire placed with ease, Catheter placed without resistance and Guidewire removed Dressing: Tegaderm Applied, BioPatch Applied and Mastisol Used Ultrasound: Sterile probe cover and gel used Ultrasound Image Saved?: Yes Number of Attempts (See previous attempts in note section): 1 Procedure Tolerated: No Complications and Patient tolerated well Procedure Outcome: Successful Procedure Comment:: Requested to a-line. Pt. awake and conversive. Tolerated procedure well. Extremely faint radial pulse, good target on ultrasound. After placement confirmed MAP 50. I titrated vasopressin to 0.04U/min and norepi to 12mcg/min wi th good effect, BP MAP 65-68. Discussed case and changes made with hospitalist. Performed By: Hung Pillai
--- NOTE | 2025-06-27 13:45 | RT.EKG_ITS ---
APPROVED REPORT Exam: Resting ECG Reason for Exam: conversion to NSR on tele Patient Location: I HR:73 bpm ECG Measurements Heart Rate 73 AXIS DE 136 P 42 QRSd 84 QRS -3 QT 385 T 33 QTc 425 Conclusion Sinus rhythm...normal P axis, V-rate 50- 99 Low voltage, extremity and precordial leads...extremity<0.5mV, precordial<1.0mV Nonspecific T abnormalities, anterior leads...T <-0.10mV, V2-V4
[2025-06-27] MEDS: Enoxaparin 40 MG/0.4 ML SYR SC (18:00)
[2025-06-27] MEDS: Normal Saline 500 ML IV (18:25)
[2025-06-27 20:09] LABS: Abs Immature Grans 0.62 10^3/uL (0.0-0.06); HCT 26.7 % (36.0-46.0); HGB 9.1 g/dL (11.2-15.7); Immature Grans % 1.7 %; MCH 32.6 pg (27.0-33.0); MCHC 34.1 % (32.0-36.0); MCV 96 fL (80-95); MPV 10.2 fL (8.0-11.0); Platelet Count 262 10^3/uL (130-400); RBC 2.79 10^6/uL (3.93-5.22); RDW 16.4 % (11.7-14.6); RDW-SD 58.4 fL
[2025-06-27] MEDS: rOPINIRole 0.5 MG TAB 1 MG PO (20:12)
[2025-06-27 20:13] LABS: WBC 35.82 10^3/uL (4.4-10.8)
[2025-06-27 20:25] LABS: ALT 34 U/L (14-59); AST 31 U/L (15-37); Albumin 1.8 g/dL (3.4-5.0); Alkaline Phosphatase 191 U/L (46-116); Anion Gap 8.4 mmol/L (3-11); BUN 44 mg/dL (7-18); Bilirubin, Total 0.7 mg/dL (0.2-1.0); CO2 21.6 mmol/L (21.0-32.0); Calcium 6.9 mg/dL (8.5-10.1); Chloride 102 mmol/L (98-107); Estimated GFR 72.61 (mL/min/1.73m2); Glucose 193 mg/dL (74-106); Magnesium 2.1 mg/dL (1.8-2.4); Potassium 5.3 mmol/L (3.5-5.1); Sodium 132 mmol/L (136-145); Total Protein 3.8 g/dL (6.4-8.2)
[2025-06-27 20:39] LABS: RBC Morphology Normal
--- NOTE | 2025-06-27 20:41 | W.PM.DS.N ---
Date of service: 06/27/25 Time of Service: 15:00 DS: Diagnosis Discharge Diagnosis (1) Septic shock with acute organ dysfunction due to anaerobic bacteria: Status: Acute Asessment and Plan: Lindsey Rajput is an 84 year old woman presenting June 26, sent in from rehab facility for increased drainage from hip incision site and elevated WBC. She was hospitalized at [facility] for June 20 left hip hemiarthroplasty and discharged to rehab on June 25. Blood culture Jun 25 positive for B fragilis, one of one bottles. In the [facility] ED she was found to be tachycardic 112 and hypotensive 86/32 with neutrophilic leukocytosis 36.59. No lactic acidosis. CRP elevated 18.47, BNP elevated 1003. UA with proteinuria, suggestive of UTI; culture was sent. Hip incision fluid and blood were sent for culture. Reasonable concern for PE with elevated ddimer; CTA negative for thrombus. CT showed extensive abdomino-pelvic ascites and anasarca, colon wall thickening, distal diverticulosis without diverticulitis, possible thickened endometrial stripe, moderate centrilobular emphysema. Patient is immunocompromised due to chronic steroids and methotrexate for RA PMH includes rheumatoid arthritis on immunosuppressive therapy, HTN, depression Patient was admitted to the ICU, with some improvement in BP after light IV fluids. She was started on norephinephrine overnight, with good response in pressure. Tachycardia persisted and worsened. Very poor urine output, 75 ml overnight. Leukocytosis increased to 64.58. Hyperkalemia 5.6 and hypomagnesemia 1.7 corrected. Steroids started. Central line and arterial line were placed and vasopressin was added to norepinephrine. Tachycardia resolved and she produced about 20 ml of urine. As of 1699 on June 27 she is hemodynamically stable on 2 pressors, somnolent but rousable and cognitively intact, with oliguria, severe lower body edema, and anasarca to the umbilicus. [facility] has been engaged for critical care consultation. At this time the left hip hemiarthroplasty appears to be unaffected; however the risk to the joint with B fragilis bacteremia is a concern. Her edema and anasarca require diuresis which is not compatible with her hypotension. (2) Bacterial infection due to Bacteroides fragilis: Status: Acute Asessment and Plan: [facility] hospitalist called [facility] after patient was admitted October 9 blood culture, one out of one bottles, grew B fragilis [facility] ID recommended IV metronidazole, which is started [facility] Jun 26 blood and wound cultures pending Ceftriaxone added Jun 27 to cover possible UTI Possible etiology is aspiration during intubation/extubation, proximity of groin to surgical site (3) Gram-negative bacteremia: Status: Acute Asessment and Plan: As above (4) Bilateral pleural effusion: Status: Acute Asessment and Plan: Moderate bilateral effusions seen on CT Fluid overload may be due to exacerbation of RA, new HF, severe sepsis She is comfortable on room air Echocardiogram not available on the weekend at this facility (5) Ascites: Status: Acute Asessment and Plan: Seen on CT General fluid overload with hypotension Careful diuresis if BP can tolerate (6) Anasarca: Status: Acute Asessment and Plan: As above (7) Abnormal urinalysis: Status: Acute Asessment and Plan: Alfaro in place since [facility] discharge UA showing proteinuria and elevated markers for UTI, culture pending No MARCUS at this time Oliguria developed since admission (8) Abnormal finding present on diagnostic imaging of uterus: Status: Acute Asessment and Plan: Imaging concerning for thickened endometrial stripe up to 2.3 cm Concerning for malignancy, free fluid, hematometria Gynecology service not available at this facility Discharge Plan Disposition Patient Disposition: Transfer-Acute Inpatient Care Specific Acute In Facility: [facility] Condition: Critical Discharge Details Reason For Visit: septic shock bacteremia Admit Date/Time: 06/26/25 15:05 Admit Provider: Ludwin Ba Attending Provider: Ludwin Ba Primary Care Provider: Maycol Liang Hospital Course Hospital Course: Lindsey Rajput is an 84 year old woman presenting June 26, sent in from rehab facility for increased drainage from hip incision site and elevated WBC. She was hospitalized at [facility] for June 20 left hip hemiarthroplasty and discharged to rehab on June 25. Blood culture Jun 25 positive for B fragilis, one of one bottles. In the [facility] ED she was found to be tachycardic 112 and hypotensive 86/32 with neutrophilic leukocytosis 36.59. No lactic acidosis. CRP elevated 18.47, BNP elevated 1003. UA with proteinuria, suggestive of UTI; culture was sent. Hip incision fluid and blood were sent for culture. Reasonable concern for PE with elevated ddimer; CTA negative for thrombus. CT showed extensive abdomino-pelvic ascites and anasarca, colon wall thickening, distal diverticulosis without diverticulitis, possible thickened endometrial stripe, moderate centrilobular emphysema. PMH includes rheumatoid arthritis on immunosuppressive therapy, HTN, depression Patient was admitted to the ICU, with some improvement in BP after light IV fluids. She was started on norephinephrine overnight, with good response in pressure. Tachycardia persisted and worsened. Very poor urine output, 75 ml overnight. Leukocytosis increased to 64.58. Hyperkalemia 5.6 and hypomagnesemia 1.7 corrected. Steroids started. Central line and arterial line were placed and vasopressin was added to norepinephrine. Tachycardia resolved and she produced about 20 ml of urine. As of 1699 on June 27 she is hemodynamically stable on 2 pressors, somnolent but rousable and cognitively intact, with oliguria, severe lower body edema, and anasarca to the umbilicus. [facility] has been engaged for critical care consultation. At this time the left hip hemiarthroplasty appears to be unaffected; however the risk to the joint with B fragilis bacteremia is a concern. Home Meds and New Rx's Prescriptions: Continued gabapentin 300 mg capsule 600 mg PO TID calcium carbonate [Calcium 500] 500 mg calcium (1,250 mg) tablet,chewable 500 mg PO BID vitamin E 268 mg (400 unit) capsule 268 mg PO DAILY prednisone 1 mg tablet,delayed release (DR/EC) 1 mg PO BID sertraline 25 mg tablet 25 mg PO DAILY omeprazole 20 mg capsule,delayed release(DR/EC) 20 mg PO DAILY atorvastatin [Lipitor] 10 mg tablet 10 mg PO DAILY losartan [Cozaar] 25 mg tablet 25 mg PO DAILY methotrexate sodium 2.5 mg tablet 18 mg PO QWEEK aspirin 81 mg tablet 81 mg PO BID cholecalciferol (vitamin D3) 25 mcg (1,000 unit) capsule 2,000 unit PO DAILY folic acid 1 mg tablet 1,000 mcg PO DAILY acetaminophen [Athenol] 325 mg tablet 650 mg PO TID PRN diphenhydramine HCl [Unisom SleepGels] 1 cap PO QHS PRN melatonin 3 mg capsule 3 mg PO HS PRN bisacodyl [Dulcolax (bisacodyl)] 10 mg suppository 10 mg TN DAILY PRN sennosides [Linda-jessica] 8.6 mg tablet 25.8 mg PO DAILY PRN sorbitol 70 % solution 15 ml PO DAILY PRN Discontinued doxycycline hyclate 100 mg capsule 100 mg PO BID cephalexin 500 mg capsule 500 mg PO QID ibuprofen [Advil] 200 mg tablet 400 mg PO Q4H PRN Discharge Instructions Activity:: Activity as Tolerated Equipment/Supplies:: No Equipment Needed Diet:: As Tolerated DS: Summary Time Spent with Patient providing and/or coordinating discharge services: Greater than 30 minutes Status at Discharge Functional status at discharge: bed bound Overall status at discharge: patient is not back to baseline Mental Status: mental status grossly normal Speech and Movement: speech and movement normal Mood: congruent mood Affect: normal affect Quality:SDOH Health Related Social Needs: Health related social needs lonely/isolated Health related social needs details states that her daughter provides anything she needs and is supportive. She lives with Lindsey rent free. Health related social needs details: states that her daughter provides anything she needs and is supportive. She lives with Lindsey rent free. Exam Narrative Exam Narrative: General: This is an ill-appearing woman, somnolent but rousable, comfortable in bed HEENT: Normocephalic. RIJ in place, c/d/i CV: RRR. BLE edema/anasarca Resp: CTAB Abd: NTND, anasarca to below navel Skin: multiple skin ulcers on dependent surfaces, right elbow, right buttock. Tailbone macerated. Left hip surgical incision sites intact with serous drainage. MSK: voluntary motion x4 Neuro: awake, alert, no focal deficits Psych Mental Status: mental status grossly normal Speech and Movement: speech and movement normal Mood: congruent mood Affect: normal affect DS: Data Vitals/I&O Vitals and I&O: Vital Signs Temperature 36.4 C L 06/27/25 19:00 Temperature Source Temporal Artery Scan 06/26/25 16:46 Pulse 71 06/27/25 19:00 Pulse 71 06/27/25 19:00 Respiratory Rate 13 06/27/25 19:00 Respiratory Effort Normal, Non-Labored 06/26/25 16:46 Respiratory Depth Normal 06/26/25 16:46 Respiratory Pattern Normal 06/26/25 16:46 Blood Pressure 85/45 L 06/27/25 12:38 Blood Pressure Mean 59 10/11/25 12:38 Blood Pressure Position Supine 06/26/25 16:46 Pulse Oximetry 94 06/27/25 19:00 Oxygen Delivery Method Room Air 06/26/25 16:46 Oxygen Flow Rate 0 06/26/25 16:46 Pain Level 6 06/26/25 19:53 Comment by prior shift 06/27/25 06:01 Arterial Systolic 107 06/27/25 19:00 Arterial Diastolic 43 06/27/25 19:00 Arterial Mean 67 06/27/25 19:00 Intake & Output 06/26/25 06/27/25 06/27/25 23:59 11:59 23:59 Intake Total 1340 / 1340 327.000 / 799.625 472.625 / 799.625 Output Total 325 / 325 100 / 280 180 / 280 Balance 1015 / 1015 227.000 / 519.625 292.625 / 519.625 Weight 68.3 kg 67.1 kg Intake: IV 1220 / 1220 327.000 / 749.625 422.625 / 749.625 Oral 120 / 120 50 / 50 Output: Urine 325 / 325 100 / 280 180 / 280 Other: Urine Color Jones Light Audra Dark Audra Jones Urine Appearance Clear Clear Clear Sediment Comment alfaro catheter placed in ED today Scant urine on alfaro bag at this time. Stool Size Small Small Small Stool Characteristics Soft Soft Liquid Formed Formed Brown Emesis Description Bile Data Completed and Pending Labs on day of discharge: Labs from last 24 hours 06/27/25 06/27/25 20:00 05:47 WBC 35.82 H* 64.58 H* RBC 2.79 L 3.60 L Hgb 9.1 L D 11.9 D Hct 26.7 L 35.0 L MCV 96 H 97 H MCH 32.6 33.1 H MCHC 34.1 34.0 RDW 16.4 H 16.8 H Plt Count 262 406 H D MPV 10.2 10.6 Immature Gran % 1.7 2.0 Neutrophils % 92.1 95.2 Lymphocytes % 3.8 1.8 Monocytes % 1.9 1.0 Eosinophils % 0.3 0.0 Basophils % 0.2 0.0 Nucleated RBC % 0.0 0.0 Absolute Neutrophils 32.99 H 61.48 H Absolute Lymphocytes 1.36 1.16 L Absolute Monocytes 0.68 0.65 Absolute Eosinophils 0.11 0.00 Absolute Basophils 0.07 0.00 RBC Morphology Normal Normal Sodium 132 L 132 L Potassium 5.3 H 5.6 H Chloride 102 101 Carbon Dioxide 21.6 21.9 Anion Gap 8.4 9.1 BUN 44 H 37 H Creatinine 0.8 0.6 Est GFR (CKD-EPI 2020) 72.61 88.45 Glucose 193 H 108 H Calcium 6.9 L 7.6 L Magnesium 2.1 1.7 L Total Bilirubin 0.7 0.8 AST 31 41 H ALT 34 39 Alkaline Phosphatase 191 H 270 H Total Protein 3.8 L 4.1 L Albumin 1.8 L 1.4 L 06/26/25 10:57 Blood Blood Culture - Pending Preliminary micro results at discharge 06/26/25 11:14 Blood Blood Culture - Preliminary NO GROWTH 24 HOURS 06/26/25 12:17 Urine - Reflex from Ua Urine Culture - Preliminary 06/26/25 10:57 Blood Blood Culture - Pending PFSH All Active Problems (Updated 06/27/25 @ 17:43 by Ludwin Ba MD) Septic shock with acute organ dysfunction due to anaerobic bacteria (Acute) Abnormal finding present on diagnostic imaging of uterus (Acute) Abnormal urinalysis (Acute) Gram-negative bacteremia (Acute) Bacterial infection due to Bacteroides fragilis (Acute) Sepsis (Acute) Anemia (Chronic) Bilateral pleural effusion (Acute) Anasarca (Acute) Ascites (Acute) Acute UTI (Acute) Social History Smoking/Tobacco Use Status: Former Tobacco Use Quit Date: 09/17/99 Smoking risk assessment performed?: Yes Alcohol Intake: never Drug use: Never Substance use type: does not use Housing: house Do you feel safe at home: Yes Time Spent with Patient Time Spent with Patient: 70-84 minutes4 Time was spent: preparing to see the patient(eg.review tests), obtaining and/or reviewing separately otained hiistory, ordering medications,tests, procedures, referring, communicating with other health career development coordinator, indepentently interpreting results, counseling the patient and care coordination
[2025-06-27] MEDS: Norepinephrine in D5W 8 MG/250 ML BAG 5.625 MG IV (22:04)
== END 2025-06-28 00:55 | disposition short-term general hospital (02) | DRG 871 ==
LOC: ER 14:34 → ICU 16:37
PROVIDERS: Admitting Provider Family Medicine; Emergency Provider Student in an Organized Health Care Education/Training Program; PCP Family Medicine; Responsible Provider Family Medicine; Visit Provider Family Medicine
DX: A41.59 Other Gram-negative sepsis; R65.21 Severe sepsis with septic shock; J90 Pleural effusion, not elsewhere classified; I47.10 Supraventricular tachycardia, unspecified; E87.1 Hypo-osmolality and hyponatremia; D84.821 Immunodeficiency due to drugs; N39.0 Urinary tract infection, site not specified; B96.6 Bacteroides fragilis [B. fragilis] as the cause of diseases classified elsewhere; Z96.642 Presence of left artificial hip joint; D64.9 Anemia, unspecified; L89.311 Pressure ulcer of right buttock, stage 1; M06.9 Rheumatoid arthritis, unspecified; R60.1 Generalized edema; R93.89 Abnormal findings on diagnostic imaging of other specified body structures; K57.30 Diverticulosis of large intestine without perforation or abscess without bleeding; J43.2 Centrilobular emphysema; I10 Essential (primary) hypertension; F32.A Depression, unspecified; L89.011 Pressure ulcer of right elbow, stage 1; I50.811 Acute right heart failure; Z66 Do not resuscitate; Z79.631 Long term (current) use of antimetabolite agent; Z79.52 Long term (current) use of systemic steroids; E83.42 Hypomagnesemia; E87.5 Hyperkalemia; R34 Anuria and oliguria; R45.89 Other symptoms and signs involving emotional state
CPT/HCPCS: 36556; 36620; 00123; 36415; 51702; 71045; 71275; 74177; 76942; 80053; 85652; 87040; 87077; 87637; 93005; 96361; 96365; 99222; 99285; J1650; 81003; 81015; 83605; 83735; 83880; 84484; 85025; 85379; 86140; 87086; 93010; 99233; 99239; 99291; J0692; J0696; J1815; J1836; J2405; J2598; J2919; J3010; J3475; P9047